=== PATIENT | female | born 1935 | race Caucasian/White ===

== ENCOUNTER → 2017-12-10 09:59 | Outpatient (BNVA) | payer MEDICARE, SELFPAY | PROVIDERS: PCP Family Medicine; Visit Provider Orthopaedic Surgery | DX: Z47.1 Aftercare following joint replacement surgery (principal); Z96.652 Presence of left artificial knee joint | CPT/HCPCS: 99213 ==

== ENCOUNTER → 2018-05-18 10:46 | Outpatient (BNVA) | payer OTHER, SELFPAY | PROVIDERS: PCP Family Medicine; Visit Provider Orthopaedic Surgery | DX: Z96.653 Presence of artificial knee joint, bilateral (principal); Z47.1 Aftercare following joint replacement surgery; M16.11 Unilateral primary osteoarthritis, right hip | CPT/HCPCS: 99212; 99213 ==

== ENCOUNTER 2023-08-21 10:08 | Day surgery (SDC) | payer MEDICARE, SELFPAY ==
[2023-08-21 10:55] VITALS: BP 147/85; PULSE 66; RESP 14; TEMP 36.7; O2SAT 98
--- NOTE | 2023-08-21 10:55 | W.ANESPRE ---
General Info Date of Service Date Performed: 08/21/23 Height: 5 ft Weight: 68.039 kg Body Mass Index (BMI): 29.2 Surgical Procedure: Operation Date: 08/21/23 12:25 Proposed Procedure Side Surgeon p Cataract Extraction with IOL Implant Left Melvin Andre MD Meds Allergies and Home Medications Allergies Allergy/AdvReac Type Severity Reaction Status Date / Time povidone-iodine Allergy Severe skin Verified 08/21/23 11:11 [From Betadine] blisters hydroxychloroquine Allergy Intermediate Other (See Verified 08/21/23 11:11 Comment) meperidine HCl [From Demerol] Allergy Intermediate ? system Verified 08/21/23 11:11 shut down morphine Allergy Intermediate sysem shut Verified 08/21/23 11:11 down valdecoxib [From Bextra] Allergy Intermediate Skin Rash Verified 08/21/23 11:11 Home Medication Medication Instructions Recorded albuterol sulfate 90 mcg/actuation 2 puff inhalation BID PRN PRN 10/02/16 aerosol inhaler (ProAir HFA) diphenhydramine 25 1 ea PO HS 10/02/16 mg-acetaminophen 500 mg tablet (Tylenol PM Extra Strength) fluticasone 500 mcg-salmeterol 50 1 ea inhalation DAILY 10/02/16 mcg/dose blistr powdr for inhalation (Advair Diskus) hydrochlorothiazide 25 mg tablet 25 mg PO DAILY 10/02/16 methotrexate sodium 2.5 mg tablet 6 tab PO .QWEEKLY 10/02/16 naproxen sodium 220 mg capsule 220 mg PO DAILY PRN PRN 10/02/16 (Aleve) pantoprazole 40 mg tablet,delayed 40 mg PO DAILY 10/02/16 release acetaminophen 650 mg 650 mg PO DIRECTED 08/19/23 tablet,extended release (Arthritis Pain Relief (acetaminophen) ER) amlodipine 5 mg tablet 5 mg PO DAILY 08/19/23 carvedilol 3.125 mg tablet 3.125 mg PO BID 08/19/23 cyclosporine 0.05 % eye drops in a 1 drp ophthalmic (eye) DIRECTED 08/19/23 dropperette (Restasis) fluticasone furoate 200 1 inh inhalation DIRECTED 08/19/23 mcg-vilanterol 25 mcg/dose inhalation powder (Breo Ellipta) torsemide 10 mg tablet 10 mg PO DAILY 08/19/23 Current Visit Medications: Current Medications Generic Name Dose Route Start Last Admin Trade Name Alissa PRN Reason Stop Dose Admin Acetaminophen 1,000 mg 08/21/23 06:00 Acetaminophen 500 Mg Tab PO 09/20/23 05:59 Q4H PRN PRN Balanced Salt Solution 500 ml 08/21/23 06:00 Balanced Salt Soln.-Plus 500 Ml Bag OP 09/20/23 05:59 DIRECTED SARINA Miscellaneous Medication 0 ml 08/21/23 06:00 Prednisolone 1%, Moxifloxacin 0.5%, Bromfenac 0.09% 5ml Btl OS 09/20/23 05:59 DIRECTED SARINA Miscellaneous Medication 0 ml 08/21/23 06:00 Tropicam./Phenyleph. 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 unsure Surgical History Surgical History History of incisional hernia repair Hx of appendectomy Hx of tubal ligation History of partial colectomy Hx of colonoscopy History of vaginoplasty Tobacco Smoking/Tobacco Use Status: Former Tobacco Use Alcohol Alcohol Intake: never Substance Use Substance use: Never Substance use type: does not use Vital Signs and Lab Results Vital Signs Most Recent Vital Signs in EMR: Temp Pulse Resp BP Pulse Ox 36.7 C 66 14 147/85 H 98 08/21/23 10:55 08/21/23 10:55 08/21/23 10:55 08/21/23 10:55 08/21/23 10:55 Lab Results Blood Type / Crossmatch: No Data to Display Complete Blood Count: No Data to Display Complete Metabolic Panel: No Data to Display Liver Function Panel: No Data to Display Coagulation Panel: No Data to Display Cardiac Panel: No Data to Display Arterial Blood Gas: No Data to Display Venous Blood Gas: No Data to Display Pancreas Panel: No Data to Display Thyroid Panel: No Data to Display Infectious Disease: No Data to Display Blood Cultures: No Data to Display Toxicology Panel: No Data to Display Anesthesia Assessment and Plan Anesthesia History Personal History: No History of Anesthesia Complications Family History: No Family History of Anesthesia Complications Exercise Tolerance Exercise Tolerance: Metabolic Equivalents>4 Pertinent Negatives Pertinent Negatives: No Symptoms of GERD, No Major Cardiovascular Symptoms or Complaints and No History of CVA/TIA Cardiac & Pulmonary Exam Cardiac Exam: Other (irregular by palpation and auscultation. Rate controlled. BP stable. ) Pulmonary Exam: Clear Bilateral Breath Sounds Cardiac and Pulmonary Comment:: Patient w/o hx of Afib. Did consult with colleague Jessica Quick and can proceed for her cataract under local. Will evaluate rhythm and refer her postoperatively to PCP depending on results. Implantable Cardiac Device Does patient have a Pacemaker or an ICD?: No Airway Exam Known Difficult Airway: No Mallampati Class: 1 Mouth Opening: Normal (> 3cm) Thyromental Distance: Greater than 3 cm Neck Range of Motion: Limited ROM (slight limitation) Neck Circumference: Normal Teeth Condition: Removable Dentures/Plates Upper (partial) and Removable Dentures/Plates Lower (partial) ASA Classification ASA Score: ASA 3 Emergency Case?: No NPO Status NPO Status: NPO Clears >2 hours, Solids >8 hours Anesthesia Plan Resuscitation Status: Full Code Anesthesia Technique: MAC Anesthesia Airway Planned: Natural Airway Monitors Used: Standard Monitors
[2023-08-21 11:13] VITALS: BMI 29.2
[2023-08-21] MEDS: Tetracaine 0.5% 4 ML BTL OS (11:48)
[2023-08-21] MEDS: Povidone-Iodine Ophth 30 ML BTL (11:49)
[2023-08-21] MEDS: Balanced Salt Soln.-PLUS 500 ML BAG OP (11:52)
[2023-08-21] MEDS: Duovisc Viscoelastic System EACH 1 EACH (11:53)
[2023-08-21] MEDS: Lidocaine 1% Pres-Free 5 ML VIAL (11:53)
[2023-08-21 12:12] VITALS: BP 157/63; PULSE 47; RESP 16; TEMP 36.2; O2SAT 97
--- NOTE | 2023-08-21 12:12 | W.PM.DSUDISC ---
Date of service: 08/21/23 Time of Service: 12:12 Discharge Plan Disposition Patient Disposition: Home Discharge Details Attending Provider: Melvin Andre Primary Care Provider: Beatriz Cheney Home Meds and New Rx's Prescriptions: No Action methotrexate sodium 2.5 MG tablet 6 tab PO .QWEEKLY pantoprazole 40 MG tablet,delayed release (DR/EC) 40 mg PO DAILY fluticasone propion-salmeterol [Advair Diskus] 1 EACH blister with device 1 ea Inhalation DAILY hydrochlorothiazide 25 MG tablet 25 mg PO DAILY albuterol sulfate [ProAir HFA] 200 PUFF HFA aerosol inhaler 2 puff Inhalation BID PRN PRN Tylenol PM Extra Strength 1 EACH tablet 1 ea PO HS naproxen sodium [Aleve] 220 MG capsule 220 mg PO DAILY PRN PRN amlodipine 5 mg tablet 5 mg PO DAILY Patient Comments: TAKE 1 TABLET BY MOUTH ONCE DAILY, THIS IS A DOSE DECREASE, DISCONTINUE 10 MG TABLETS carvedilol 3.125 mg tablet 3.125 mg PO BID fluticasone furoate-vilanterol [Breo Ellipta] 200-25 mcg/dose blister with device 1 inh INHALATION DIRECTED torsemide 10 mg tablet 10 mg PO DAILY Patient Comments: TAKE 1 TABLET BY MOUTH ONCE DAILY cyclosporine [Restasis] 0.05 % dropperette 1 drp ophthalmic (eye) DIRECTED acetaminophen [Arthritis Pain Relief (acetam)] 650 mg tablet extended release 650 mg PO DIRECTED Discharge Instructions Stand Alone Forms: [facility] Post-Op CataractRalph ([facility]U) Discharge Orders Discharge Orders: Discharge Order (Routine); Ordered 08/21/23 Ordered By: Melvin Andre DS: Diagnosis Discharge Diagnosis (1) Cortical age-related cataract, left eye: Status: Resolved (2) Nuclear age-related cataract, left eye: Status: Resolved
--- NOTE | 2023-08-21 12:13 | W.PM.OP ---
Date of service: 08/21/23 Time of Service: 12:13 Operative Note Operative Note DATE OF PROCEDURE: 08/21/23 PRE-OP DIAGNOSIS: Nuclear/cortical cataract, left eye POST-OP DIAGNOSIS: same PROCEDURE: Cataract extraction using phacoemulsification with intraocular lens implant, left eye SURGEON: Melvin Andre ANESTHESIA TYPE: Local By Surgeon and MAC Refer to Anesthesia Record PATHOLOGY: none sent COMPLICATIONS: None Patient was transported to: same day Patient's condition: stable Implants: Edgar Clareon [id number] Indications: Progressive decreased vision due to cataract, left eye Procedure Description: CATARACT SURGERY OPERATIVE REPORT PREOPERATIVE DIAGNOSIS: Nuclear/cortical cataract, left eye POSTOPERATIVE DIAGNOSIS: Same OPERATION: Cataract extraction using phacoemulsification with posterior chamber intraocular lens implant, left eye. IOL: IOL Statistical Clerk Advertising/Model: Edgar Clareon [id number] IOL Power: + 21.5 diopters IOL Serial Number: [id number] Optic Diameter: 6.0mm Haptic/Overall Diameter: 13.0mm PHACO INFO: EdgarAudiodrafturion Vision System with OZil and Active Fluidics Cumulative Dispersed Energy (CDE): 7.07 seconds SURGEON: Melvin Andre MD, ELY ANESTHESIA: Monitored Anesthesia Care (MAC), with local sub-tenon's anesthetic infiltration COMPLICATIONS: None SPECIMENS: None INDICATIONS FOR PROCEDURE: Patient is an 87-year-old lady with history of diminished visual acuity in her left eye secondary to the development of nuclear/cortical cataract. She is significantly symptomatic that she desires cataract surgery and attempt to improve and maximize her vision. The option of cataract surgery was offered to the patient and she wished to proceed. See office notes for detailed information. PROCEDURE: The correct surgical eye was identified and marked as the left eye and the pupil was dilated in the preoperative area using mydriatics and cycloplegics. The dilated pupil size was 6.5 mm. The patient elected to proceed without oral sedation. The patient was brought to the operating room where cardiopulmonary monitoring was instituted and surgical time-out was performed, confirming the correct operative eye and IOL power. Topical anesthesia was administered and ophthalmic povidone-iodine 5% was instilled into the conjunctival fornices. She tolerated the topical ophthalmic Betadine well the parish-ocular area was prepped with sterile water only, due to Betadine allergy, and draped in the usual sterile fashion for intraocular surgery, including an aperture drape. A Tegaderm transparent film dressing was cut in half and used to cover the lashes and lid margins. Care was taken to sequester the lashes and lid margins under the Tegaderm dressing. A lid speculum was placed between the lids of the operative eye and the Edgar LuxOR Revalia operating microscope was maneuvered into position. Osei scissors were then used to make a conjunctival buttonhole approximately 6mm posterior to the limbus in the inferonasal quadrant. Blunt dissection was carried out to expose bare sclera, and a blunt-tipped sub-tenon?s anesthesia cannula was introduced and passed posteriorly along the globe where non-preserved plain lidocaine was injected into posterior sub-Tenon?s space. A sideport knife was used to make a paracentesis port. Intraocular phenylephrine/lidocaine was injected into the anterior chamber. The anterior chamber was then filled with viscoelastic. A keratome knife was used construct a two-plane clear corneal tunnel extending 2.0mm into clear cornea. A flap was raised on the anterior capsule and capsulorhexis forceps were used to complete a continuous curvilinear capsulorhexis of 5.5 mm. Some mild zonular laxity was noted, the anterior capsule was noted to be quite thin. Balanced salt solution was then used to perform cortical cleaving hydrodissection and nuclear hydrodelineation until the lens could be freely rotated within the capsular bag. The lens nucleus was then disassembled and removed within the capsular bag and iris plane using phacoemulsification. Residual cortical material was removed using the irrigation/aspiration handpiece. The posterior capsule was carefully polished to remove as much residual lens epithelial cells as safely possible. The capsular bag was then inflated and the anterior chamber deepened with viscoelastic. The lens implant described above was inserted into the capsular bag using the Edgar Autonome Injector. A Kuglen hook was used to dial the IOL into position. Residual viscoelastic was then removed first from posterior to the IOL, then from the anterior chamber using the I/A handpiece. The lens implant was noted to center nicely within the capsular bag. The incisions were stromally hydrated, and the anterior chamber was reformed using BSS. Then 0.5cc of moxifloxacin 1.0mg/ml were injected into the capsular bag and anterior chamber. The incisions were checked with a Weck spear and found to be secure. Several drops of ophthalmic povidone-iodine 5% were then applied to the eye followed by two drops of combination steroid/NSAID/antibiotic solution. The drapes were removed and a clear plastic protective eye shield was placed over the eye. The patient was then returned to [facility] Day Surgery in stable condition.
--- NOTE | 2023-08-21 12:51 | W.ANESPOSTOP ---
Postoperative Evaluation Date, Time and Location Date Performed: 08/21/23 Time Performed: 12:15 Patient Location: Day Surgery Unit Vital Signs Most Recent Imported Vital Signs: Most Recent Vital Signs Temp Pulse Resp BP Pulse Ox 36.2 C L 47 L 16 157/63 H 97 08/21/23 12:12 08/21/23 12:12 08/21/23 12:12 08/21/23 12:12 08/21/23 12:12 Pain Score Most Recent Pain Score: Most Recent Pain Score Pain Level 0 08/21/23 12:12 Assessment Mental Status: Awake (Alert & Oriented to Patient Baseline) Airway and Respiratory Function: Patent airway with normal (patient baseline) respiratory exam Cardiovascular Function: Hemodynamically Stable Hydration Status: Adequately Hydrated Nausea & Vomiting: No Nausea or Vomiting Pain: Pt. Denies Any Pain Peripheral Nerve Block: Other (Local by Dr. Andre)
== END 2023-08-21 12:42 | disposition home or self-care (01) ==
PROVIDERS: PCP Internal Medicine; Visit Provider Ophthalmology
PROC: (CPT 66984; principal; 2023-08-21 12:15)
DX: H25.012 Cortical age-related cataract, left eye (principal); H25.12 Age-related nuclear cataract, left eye
CPT/HCPCS: 66984; 00123; V2632; J2003